=== PATIENT | female | born 1960 | race Caucasian/White ===

== ENCOUNTER 2023-05-15 08:11 | Emergency (ER) | payer BC, SELFPAY ==
[2023-05-15 08:15] VITALS: BP 135/71
--- NOTE | 2023-05-15 08:37 | ED.GENMED ---
History of Present Illness
<RONNIE Fuentes - Last Filed: 05/15/23 14:23>
General
Chief Complaint: Abdominal Pain
Source: patient
Exam Limitations: none
Time Seen by Provider: 05/15/23 08:20
Nursing documentation reviewed up to this point in time: agreed with
Travel History
Have you had any contact with someone who has COVID-19?: Yes
Comment: Boss at work + last week, pt. has tested - since
Do you have any symptoms of coronavirus? Fever > 100 degrees, chills, cough, shortness of breath, sore throat, loss of taste or smell, muscle aches, or headache?: No
History of Present Illness
History of Present Illness:
63-year-old female presents to the ER for evaluation. He started with nausea Sunday,, 4 days ago. She admits to having a little bit of diarrhea since then she has had remittent sweats chills nausea and feels very weak and lightheaded. She has a
history of diverticulitis but she denies any abdominal pain. She denies any urinary frequency urgency or dysuria. she had to lay down this morning in the bathroom floor because she was too weak to stand up.
Patient reports she has had similar episodes in the past where she becomes very nauseous. She has been seen by her family doctor for this as well as GI with no clear diagnosis.
Review of Systems
<RONNIE Fuentes - Last Filed: 05/15/23 14:23>
Review of Systems
Allergies reviewed?: Yes
All Other Systems: ROS reviewed and negative except as documented in HPI and ROS
Constitutional: Reports fever (subjective fevers ), fatigue and chills
Respiratory: Reports no symptoms
Cardiac: Reports no symptoms
ABD/GI: Reports nausea and diarrhea; Denies abdominal pain
: Reports no symptoms; Denies flank pain, urgency or discharge
Musculoskeletal: Reports no symptoms
Skin: Reports no symptoms
Neurological: Reports no symptoms
Hematologic/Lymphatic: Reports no symptoms
Psychiatric: Reports no symptoms
Phy Exam
<RONNIE Fuentes - Last Filed: 05/15/23 14:23>
General Physical Exam
General Presentation: no apparent distress
General age: appears stated age
General Skin: warm and dry
General Habitus: normal
General Mental: alert
General Hydration: dry mucous membranes
Cardiovascular Exam
Cardiovascular Exam: regular rate/rhythm, no murmur and normal peripheral pulses
Pulmonary Exam
Pulmonary Exam: lungs clear and no respiratory distress
Gastrointestinal Exam
Gastrointestinal Exam: non tender and soft
Neurological Exam
Neurological Exam: alert and oriented x3
Musculoskeletal Exam
Musculoskeletal Exam: full ROM
Skin Exam
Skin Exam: normal color and warm/dry
Psychiatric Exam
Psychiatric Exam: normal mood/affect
Course
<RONNIE Fuentes - Last Filed: 05/15/23 14:23>
Orders/Labs/Results
Orders:
Orders
05/15/23 08:34
Cardiac Monitoring- Treatment ONCE
IV Insert/Care/Rem.- Treatment PRN
0.9% Sodium Chloride 1000 ml [Nss] 1,000 ml IV BOLUS
Ondansetron Injectable [Zofran] 4 mg IV NOW STA
05/15/23 08:38
COVID-19 Antigen Urgent
Source: Nasal Swab
Complete Blood Count/With Diff Urgent
Influenza A+B Rapid Molecular Urgent
KISHAN Source: Nasal Swab
Specimen Description:
05/15/23 08:43
Electrocardiogram (*1) Stat
Reason for Study: Other
Other Reason for Exam: chest pain
EKG- Treatment ONCE
05/15/23 08:58
Comprehensive Metabolic Panel Urgent
Lipase Urgent
05/15/23 09:18
CT Abd/Pel (IV only)-DH only Urgent
Comment:
Reason For Exam: abd pain
05/15/23 11:33
Metoclopramide [Reglan] 10 mg IV NOW STA
05/15/23 11:40
Lactic Acid Urgent
Blood Culture Q30M
KISHAN Source: Blood/Venous
Specimen Description:
05/15/23 11:48
Blood Culture Q30M
KISHAN Source: Blood/Venous
Specimen Description:
05/15/23 13:03
Urinalysis Reflex To Culture Urgent
Date Specimen was Collected: 05/15/23
Time Specimen was Collected: 13:02
Urine Microscopic Reflex Cult Urgent
Urine Culture Urgent
KISHAN Source: U
Specimen Description:
Date Specimen was Collected: 05/15/23
Time Specimen was Collected: 13:02
Abnormal Lab Results
05/15/23 05/15/23 05/15/23
08:38 08:58 13:03
WBC 17.0 H 10^3/uL
(4.8-10.8)
RBC 5.46 H 10^6/uL
(4.20-5.40)
MCV 79.1 L fL
(81.0-99.0)
Abs Immat Gran (auto) 0.1 H 10^3/uL
(0-0.05)
Absolute Neuts (auto) 14.0 H 10^3/uL
(1.4-6.5)
Absolute Monos (auto) 1.0 H 10^3/uL
(0.1-0.6)
Immature Gran % 0.6 H %
(0-0.5)
Neutrophils % 82.0 H %
(42.2-75.2)
Lymphocytes % 11.3 L %
(20.5-51.1)
BUN 19 H mg/dl
(7-17)
Glucose 161 H mg/dl
(70-99)
Leukocyte Esterase Rfl 2+ A
(Negative)
Urine RBC 3-6 A /HPF
(0-2)
Urine WBC (Reflex) 16-20 A /HPF
(0-5)
Urine Bacteria (Reflex) Few A
(Negative)
05/15/23 08:38
05/15/23 08:58
Vital Signs
Initial and Last Documented VS:
Initial Vital Signs
Temp Pulse Resp BP Pulse Ox
98.2 F 58 16 135/71 95
05/15/23 08:15 05/15/23 08:15 05/15/23 08:15 05/15/23 08:15 05/15/23 08:15
Last Documented Vital Signs
Temp Pulse Resp BP Pulse Ox
98.2 F 56 21 122/59 95
05/15/23 08:15 05/15/23 13:15 05/15/23 13:15 05/15/23 13:03 05/15/23 08:15
Major Gifts Director consulted with Physician
Major Gifts Director consulted with physician?: Yes
Name of Physician Consulted: Galdino
<Fidel Ahmadi, DO - Last Filed: 05/15/23 11:30>
Orders/Labs/Results
Orders:
Orders
05/15/23 08:34
Cardiac Monitoring- Treatment ONCE
IV Insert/Care/Rem.- Treatment PRN
0.9% Sodium Chloride 1000 ml [Nss] 1,000 ml IV BOLUS
Ondansetron Injectable [Zofran] 4 mg IV NOW STA
05/15/23 08:38
COVID-19 Antigen Urgent
Source: Nasal Swab
Complete Blood Count/With Diff Urgent
Influenza A+B Rapid Molecular Urgent
KISHAN Source: Nasal Swab
Specimen Description:
05/15/23 08:43
Electrocardiogram (*1) Stat
Reason for Study: Other
Other Reason for Exam: chest pain
EKG- Treatment ONCE
05/15/23 08:58
Comprehensive Metabolic Panel Urgent
Lipase Urgent
05/15/23 09:18
CT Abd/Pel (IV only)-DH only Urgent
Comment:
Reason For Exam: abd pain
05/15/23 11:33
Metoclopramide [Reglan] 10 mg IV NOW STA
05/15/23 11:40
Lactic Acid Urgent
Blood Culture Q30M
KISHAN Source: Blood/Venous
Specimen Description:
05/15/23 11:48
Blood Culture Q30M
KISHAN Source: Blood/Venous
Specimen Description:
05/15/23 13:03
Urinalysis Reflex To Culture Urgent
Date Specimen was Collected: 05/15/23
Time Specimen was Collected: 13:02
Urine Microscopic Reflex Cult Urgent
Urine Culture Urgent
KISHAN Source: U
Specimen Description:
Date Specimen was Collected: 05/15/23
Time Specimen was Collected: 13:02
Abnormal Lab Results
05/15/23 05/15/23 05/15/23
08:38 08:58 13:03
WBC 17.0 H 10^3/uL
(4.8-10.8)
RBC 5.46 H 10^6/uL
(4.20-5.40)
MCV 79.1 L fL
(81.0-99.0)
Abs Immat Gran (auto) 0.1 H 10^3/uL
(0-0.05)
Absolute Neuts (auto) 14.0 H 10^3/uL
(1.4-6.5)
Absolute Monos (auto) 1.0 H 10^3/uL
(0.1-0.6)
Immature Gran % 0.6 H %
(0-0.5)
Neutrophils % 82.0 H %
(42.2-75.2)
Lymphocytes % 11.3 L %
(20.5-51.1)
BUN 19 H mg/dl
(7-17)
Glucose 161 H mg/dl
(70-99)
Leukocyte Esterase Rfl 2+ A
(Negative)
Urine RBC 3-6 A /HPF
(0-2)
Urine WBC (Reflex) 16-20 A /HPF
(0-5)
Urine Bacteria (Reflex) Few A
(Negative)
05/15/23 08:38
05/15/23 08:58
Vital Signs
Initial and Last Documented VS:
Initial Vital Signs
Temp Pulse Resp BP Pulse Ox
98.2 F 58 16 135/71 95
05/15/23 08:15 05/15/23 08:15 05/15/23 08:15 05/15/23 08:15 05/15/23 08:15
Last Documented Vital Signs
Temp Pulse Resp BP Pulse Ox
98.2 F 56 21 122/59 95
05/15/23 08:15 05/15/23 13:15 05/15/23 13:15 05/15/23 13:03 05/15/23 08:15
<RONNIE Fuentes - Last Filed: 05/15/23 14:23>
MDM/Problems Addressed
MDM/Problems Addressed:
Patient is a 63-year-old female who complains of nausea. Symptoms started over the weekend. Patient is been nauseous for the past several days. She did have initial diarrhea however has not had any BM for the past several days. Patient denies
any recent fevers. She has not vomited. Patient was very weak today. She has had similar episodes in the past with no diagnosis patient presents here with family awake alert no acute distress afebrile white count elevated at 17,000 with a normal
lactic stable hemoglobin. Abdomen soft and nontender. Patient has no UTI symptoms. Unremarkable chemistries. No acute UTI on urinalysis. Patient was hydrated here given Zofran feeling much better gone back and forth to the bathroom. CAT scan
was done which shows large volume feces of the colon suggesting possible constipation biliary sludge versus small calculi in the gallbladder. Patient has no right upper quadrant tenderness. Patient is nontoxic feel much better feels well to go
home .
Vital signs stable. Patient's heart rate in the 50s however that is baseline from prior visits. Will DC with follow-up by family doctor as well as GI(she is a pt of [facility]) . Discussed MiraLAX for constipation.
<ORNNIE Fuentes - Last Filed: 05/15/23 14:23>
*Radiology
Radiology exam reviewed: radiology read reviewed (CAT scan shows large amount of feces throughout the colon suggesting possible constipation, biliary sludge versus small calculi in the bladder)
*Pulse Oximetry
Patient hypoxic: no
*Critical Care Note
Total Time (30-74mins, 75-104mins- exclusive of procedures): Not Applicable
ED Attending Note
<RONNIE Fuentes - Last Filed: 05/15/23 14:23>
-
Portions of this chart may have been created with voice recognition software.� Occasional wrong word or��sound alike� substitutions may have occurred due to the inherent limitations of voice recognition software.
<Fidel Ahmadi DO - Last Filed: 05/15/23 11:30>
ED Attending Note
Patient seen and examined by attending physician: Yes
I performed the substantive portion of visit, reviewed & personally made and approve the management plan that is documented in note by myself or SIMON.: Yes
I performed a history and physical exam of patient and discussed management with resident, I reviewed resident's note and agree with documented findings and plan of care.: Yes
ED Attending Note:
I evaluated patient at bedside. Her vital signs are not consistent with sepsis however she does have a high white blood cell count. She does have ongoing nausea but she does feel a little bit improved after IV fluids were given.
Discharge Plan
Departure
Patient Disposition: Home (Routine Discharge)
Date of Disposition: 05/15/23
Time of Disposition: 14:20
Patient with high blood pressure during this ER visit?: Yes
Covid-19: Not Applicable
Discharge Problem:
Nausea, Lightheadedness, Constipation
Instructions: BLOOD PRESSURE, Abdominal Pain, Constipation, Adult (DC)
Prescriptions:
No Action
methylprednisolone [Medrol (Daron)] 4 MG tablets,dose pack
4 tab PO . DIRECT Qty: 1 0RF
Referrals:
Rob Powell PA-C [Family Provider] -
Activity Restrictions/Additional Instructions:
Follow-up with your family doctor in the next several days as well as your GI specialist . Return if any worsening of symptoms.
Interventions
Interventions:
*Risk Screen - Suicide Last Done: 05/15/23 08:15
*General Assessment Last Done: 05/15/23 08:15
*Neglect/Abuse Screening Last Done: 05/15/23 08:15
*ED COVID-19 Vaccine History Last Done: 05/15/23 08:33
EO-Asbqua-Xsmidbmeii Assessment Last Done: 05/15/23 08:33
[2023-05-15] MEDS: ZOFRAN 4 MG IV (08:44)
[2023-05-15] MEDS: NSS 1000 IV (08:45)
[2023-05-15 08:50] LABS: % Basophils 0.3 % (0-2); % Immature Granulocytes 0.6 % (0-0.5); % Lymphocytes 11.3 % (20.5-51.1); % Monocytes 5.8 % (1.7-9.3); Absolute Basophils 0.1 10^3/uL (0-0.2); Absolute Immature Granulocytes 0.1 10^3/uL (0-0.05); Absolute Lymphocytes 1.9 10^3/uL (1.2-3.4); Hematocrit 43.2 % (37.0-47.0); Hemoglobin 15.2 g/dL (12.0-16.0); Mean Corp Hgb Conc. 35.2 g/dL (33.0-37.0); Mean Corpuscular Hgb 27.8 pg (27.0-31.0); Mean Corpuscular Volume 79.1 fL (81.0-99.0); Mean Platelet Volume 9.9 fL (7.4-10.4); Nucleated Red Blood Cells % 0 %; Platelet Count 260 10^3/uL (130-400); Red Blood Cell Count 5.46 10^6/uL (4.20-5.40); Red Cell Dist. Width 13.6 % (11.5-14.5)
[2023-05-15 09:02] LABS: COVID-19 Antigen Negative (Negative)
[2023-05-15 09:10] VITALS: BP 125/71
[2023-05-15 09:39] LABS: ALT (SGPT) 18 U/L (0-35); AST (SGOT) 21 U/L (14-36); Albumin 4.6 g/dl (3.5-5.0); Alkaline Phosphatase 116 U/L (38-126); Blood Urea Nitrogen 19 mg/dl (7-17); Calcium 9.5 mg/dl (8.4-10.2); Carbon Dioxide 26 mmol/L (22-30); Chloride 101 mmol/L (98-107); Glucose 161 mg/dl (70-99); Lipase 29 U/L (23-300); Potassium 3.7 mmol/L (3.5-5.1); Sodium 136 mmol/L (135-145); Total Bilirubin 0.8 mg/dl (0.2-1.3); Total Protein 7.5 g/dl (6.3-8.2); eGFR > 60.00
[2023-05-15 11:02] VITALS: BP 113/63
[2023-05-15] MEDS: REGLAN IV (11:50)
[2023-05-15 12:00] VITALS: BP 112/60
[2023-05-15 13:03] VITALS: BP 122/59
[2023-05-15] MEDS: REGLAN 10 MG IV (13:04)
[2023-05-15 13:20] LABS: Urine Albumin Trace (Neg - Trace); Urine Bilirubin Negative (Negative); Urine Character Clear (Clear); Urine Color Yellow; Urine Glucose Negative (Negative); Urine Ketone Negative (Negative); Urine Leukocyte 2+ (Negative); Urine Nitrite Negative (Negative); Urine Occult Blood Negative (Negative); Urine Specific Gravity 1.005 (<1.030); Urine Urobilinogen Negative (Neg - 1+)
[2023-05-15 13:51] LABS: Urine Bacteria Few (Negative); Urine White Cell 16-20 /HPF (0-5)
[2023-05-15 14:52] VITALS: BP 125/60
== END 2023-05-15 14:58 | disposition home or self-care (01) ==
LOC: EMR 08:11
PROVIDERS: Nurse Practitioner; EMERGENCY PHYSICIAN Emergency Medicine; FAMILY PHYSICIAN Physician Assistant Medical
DX: R42 Dizziness and giddiness (principal); R11.0 Nausea; K59.00 Constipation, unspecified; R03.0 Elevated blood-pressure reading, without diagnosis of hypertension
CPT/HCPCS: 99285; 96374; 96375; 96361; 74177; 80053; 81003; 81015; 83605; 83690; 85025; 87040; 87086; 87502; 87811; 93005; Q9967